=== PATIENT | male | born 1995 | race African-American/Black ===

== ENCOUNTER → 2020-01-28 14:10 | Outpatient (CLI) | payer OTHER, MEDICAID, SELFPAY ==
[2020-01-29 17:45] LABS: COVID19 Sendout Not Detected (Not Detect)
== END ==
PROVIDERS: Visit Provider Physician Assistant
DX: Z11.59 Encounter for screening for other viral diseases (principal)
CPT/HCPCS: 87635

== ENCOUNTER 2020-01-31 07:43 | Day surgery (SDC) | payer OTHER, MEDICAID, SELFPAY ==
--- NOTE | 2020-01-31 | PATH_ITS ---
[facility] Accession Number: [id number] . 01 Material submitted: . PART A: colon - CECUM AND ASCENDING COLON PART B: colon - TRANSVERSE COLON PART C: colon - TRANSVERSE COLON POLYP PART D: colon - SIGMOID AND DESCENDING COLON PART E: sigmoid colon - SIGMOID COLON POLYP PART F: rectum - RECTUM . 01 Clinical history: . A: CECUM AND ASCENDING COLON BIOPSY (HISTORY OF UC, DISEASE ACTIVITY ASSESSMENT) . 02 Diagnosis: A. Cecum and Ascending Colon, Biopsies: Colonic mucosa with no significant diagnostic abnormality. Negative for active inflammation, granulomas, dysplasia, and malignancy. . B. Transverse Colon: Colonic mucosa with no significant diagnostic abnormality. Negative for active inflammation, granulomas, dysplasia, and malignancy. . C. Transverse Colon Polyp: Portions of hyperplastic polyp x3. . D. Sigmoid and Descending Colon: Mild crypt architectural distortion and no activity identified. Negative for granulomas, dysplasia, and malignancy. . E. Sigmoid Colon Polyp: Hyperplastic polyp. . F. Rectum: Colonic mucosa with no significant diagnostic abnormality. Negative for active inflammation, granulomas, dysplasia, and malignancy. [facility] 02/01/2020 1743 Local . 02 Electronically signed: . Saira Swartz MD, Pathologist NPI- [id number] . 01 Gross description: . Part A: CECUM AND ASCENDING COLON: Received in formalin are 4 fragment(s) of fox, soft tissue measuring 0.2 x 0.2 x 0.2 cm to 0.4 x 0.4 x 0.2 cm submitted entirely in 1 cassette(s) Part B: TRANSVERSE COLON: Received in formalin are multiple fragment(s) of fox, soft tissue measuring 0.1 x 0.1 x 0.1 cm to 0.2 x 0.2 x 0.2 cm submitted entirely in 1 cassette(s) Part C: TRANSVERSE COLON POLYP: Received in formalin are 3 fragment(s) of fox, soft tissue measuring 0.1 x 0.1 x 0.1 cm to 0.2 x 0.2 x 0.2 cm submitted entirely in 1 cassette(s) Part D: SIGMOID AND DESCENDING COLON: Received in formalin are multiple fragment(s) of fox, soft tissue measuring 0.1 x 0.1 x 0.1 cm to 0.2 x 0.2 x 0.2 cm submitted entirely in 1 cassette(s) Part E: SIGMOID COLON POLYP: Received in formalin is 1 fragment(s) of fox, soft tissue measuring 0.1 x 0.1 x 0.1 cm submitted entirely in 1 cassette(s) Part F: RECTUM: Received in formalin are 3 fragment(s) of fox, soft tissue measuring 0.1 x 0.1 x 0.1 cm to 0.3 x 0.2 x 0.2 cm submitted entirely in 1 cassette(s) /MAX 02/01/2020 0159 Local . 02 Pathologist provided ICD-10: R11.2, I95.1, K21.9 . 02 CPT . 188806, 119655, 267991, 914436, 634503, 701402 Performed at: 01 [facility] [address] [place] [address], [place], [place] [id number] MD Piyush Mays MD Phone: [phone] Performed at: 02 [facility] [address] [place], [place] [id number] MD Andra Otoole MD Phone: [phone]
[2020-01-31 08:04] VITALS: BP 125/82; PULSE 97; RESP 15; TEMP 36.2; O2SAT 98; BMI 32.8
[2020-01-31] MEDS: LACTATED RINGERS 1,000 ML 200 ML IV (08:26)
--- NOTE | 2020-01-31 08:31 | PM.HP.1 ---
History of Present Illness History of Present Illness Chief complaint: COLONOSCOPY W/POSS BX Patient History Family & Social History Social History: household members family Tobacco & Substance use: Smoking Status Never smoker alcohol intake never Substance Use Type does not use Meds Home Medications and Allergies Home Medications Medication Instructions Recorded Confirmed Type atomoxetine 100 mg PO DAILY 01/31/20 01/31/20 History azathioprine 50 mg PO DAILY 01/31/20 01/31/20 History clonidine HCl 0.2 mg PO BEDTIME 01/31/20 01/31/20 History ferrous sulfate [iron] 325 mg PO DAILY 01/31/20 01/31/20 History infliximab [Remicade] 100 mg IV [id number] 01/31/20 01/31/20 History risperidone [Risperdal] 1 mg PO BEDTIME 01/31/20 01/31/20 History Allergies Allergy/AdvReac Type Severity Reaction Status Date / Time No Known Drug Allergies Allergy Verified 01/31/20 08:00 Review of Systems Review of Systems ROS: Yes All systems reviewed with the patient and are negative except as otherwise documented Exam Vital Signs (past 8 hours): - 01/31/20 08:04 Temperature 97.1 F L Pulse Rate 97 H Respiratory Rate 15 Blood Pressure 125/82 Pulse Oximetry 98 Oxygen Delivery Method Room Air Narrative Exam Narrative: Awake alert oriented x3, no acute distress, lungs clear auscultation, heart regular rate and rhythm, no lower extremity edema Assessment & Plan Assessment & Plan narrative: History of ulcerative colitis for colonoscopy COVID-19 COVID-19 status: Negative
--- NOTE | 2020-01-31 09:04 | PM.OP.ENDO ---
Operative Date/Time/Diagnoses Date of procedure: 01/31/20 Procedure & Clinicians Study performed: Colonoscopy with biopsy Moderate conscious sedation was administered by the endoscopy nurse and supervised by the endoscopist. The following parameters were monitored: Oxygen saturation, heart rate, blood pressure, and response to care. 7mg midazolam and 150mcg fentanyl given. Same procedure as scheduled: Yes Indications: Ulcerative colitis. Assessment of disease activity. Assess response to therapy. Procedure Notes Procedure in detail: Prior to the procedure, history and physical was performed, and patient medications and allergies were reviewed. Preprocedure nursing history and assessment was reviewed. Patient identification and proposed procedure were verified by the physician and nurse in the procedure room. The physical status of the patient was reassessed after the procedure. After informed consent was obtained including risks, benefits, and alternatives, the scope was passed under direct vision. Throughout the procedure, the patient's blood pressure, pulse, and oxygen saturations were monitored continuously. The colonoscope was introduced through the anus and advanced to the cecum as identified by the appendiceal orifice and ileocecal valve and into the terminal ileum. The patient tolerated the procedure well. Bowel prep was deemed adequate to detect polyps greater than 5 mm. Perianal and digital rectal examination were unremarkable. Retroflexion in the rectum revealed grade 1 internal hemorrhoids. The terminal ileum was normal appearing The cecum and proximal ascending colon were normal appearing. From the distal ascending colon to the distal sigmoid colon, areas of focal scarring, patchy mild erythema, and innumerable small to large pseudopolyps were noted. Two pseudopolyps in the transverse and sigmoid colon were characterized by marked erythema, mucosal hemorrhage, and measured 15-20 mm in diameter. Biopsies of these polyps were taken. The rectum was normal appearing aside from small areas of focal scarring. Biopsies were taken throughout the entire colon for assessment of disease activity. Impression: Normal appearing terminal ileum Normal appearing cecum and rectum, aside from mild scarring in the rectum indicative of prior inflammation Innumerable small to large pseudopolyps noted from the distal ascending colon to the distal sigmoid colon. The 2 largest pseudopolyps in the transverse and sigmoid colon, respectively, were characterized by marked erythema in focal mucosal hemorrhage. Biopsies were taken. Biopsies taken from throughout the entire colon Sedation minutes: 26 Specimen(s): none sent Complications: other (EBL minimal. No complications) Post-procedure Plan for aftercare: Follow-up pathology results Resume previous diet Resume home medications Return to GI clinic as previously recommended Patient has a contact number available for emergencies. The signs and symptoms of potential delayed complications were discussed with the patient. Return to normal activities tomorrow. Written discharge instructions were provided to the patient. Discharged home with escort
[2020-01-31 09:05] VITALS: BP 125/78; PULSE 112; RESP 17; TEMP 36.1; O2SAT 98
[2020-01-31] MEDS: fentaNYL 250 MCG/5 ML INJ IV (09:06)
[2020-01-31] MEDS: MIDAZOLAM 5 MG/5 ML VIAL IV (09:07)
[2020-01-31 09:10] VITALS: BP 127/82; PULSE 94; RESP 20; O2SAT 98
[2020-01-31 09:19] VITALS: BP 130/92; PULSE 112; RESP 12; O2SAT 98
[2020-01-31 10:09] VITALS: BP 130/77; PULSE 112; RESP 12; TEMP 36.9; O2SAT 98
== END 2020-01-31 10:09 | disposition home or self-care (01) ==
PROVIDERS: PCP Nurse Practitioner Gerontology; Referring Provider Nurse Practitioner Gerontology; Visit Provider Internal Medicine
PROC: 0DJD8ZZ Inspection of Lower Intestinal Tract, Via Natural or Artificial Opening Endoscopic (ICD-10-PCS; CPT 45378; principal; 2020-01-31 08:30)
DX: K63.5 Polyp of colon (principal); F84.0 Autistic disorder; K64.0 First degree hemorrhoids
CPT/HCPCS: 45380; J2250; J3010

== ENCOUNTER → 2023-04-06 14:18 | Outpatient (CLI) | payer OTHER, MEDICAID, SELFPAY ==
--- NOTE | 2023-04-06 14:19 | DI.ECHO.S_ITS ---
[place] [facility]---------+ [facility] +---------+ : : [address] : : : : [id number] : : : : Phone: [phone]+ Echocardiogram Report + + :Name: ROSIE TOSCANO Study Date: 04/06/2023 Height: 72 in : :[facility] ReadingLocation: Weight: 265 lb : : Gender: Male BSA: 2.4 m2 : :: 1995 Age: 28 yrs BP: 137/65 mmHg: :Reason For Study: Chest Pain : :Ordering Physician: ANIVAL, : :GARRISON Performed By: Wanda Cabrera : :Referring: GARRISON FLORIAN : + + Interpretation Summary The left ventricle is borderline dilated. Left ventricular systolic function is low normal. The ejection fraction is estimated to be 50-55%. Diastolic parameters suggest probable normal left ventricular diastolic function and normal filling pressures. The right ventricle is normal in size and function. The right ventricular systolic pressure is estimated to be at least 18 mmHg based on an estimated right atrial pressure of 3 mm Hg. The left atrial size is normal. The aortic valve is bicuspid. There is probable moderate aortic regurgitation. Consider repeating a limited echo to re-evaluate and calculate ERO. Recommend measure semiquantiative and quantative parameters for AR. The aortic root is borderline dilated. The ascending aorta is mildly enlarged. Recommend cardiology consult as well. Procedure: A two-dimensional transthoracic echocardiogram with color flow and Doppler was performed. The study quality was technically adequate. There is no prior echocardiogram noted for this patient. The patient was in normal sinus rhythm during the exam. Left Ventricle: The left ventricle is borderline dilated. Left ventricular systolic function is low normal. The ejection fraction is estimated to be 50- 55%. There are no focal wall motion abnormalities. Diastolic parameters suggest probable normal left ventricular diastolic function and normal filling pressures. Right Ventricle: The right ventricle is normal in size and function. Atria: The left atrial size is normal. Right atrial size is normal. There is no Doppler evidence for an interatrial shunt. Mitral Valve: The mitral valve is normal. There is no mitral valve stenosis. There is trace mitral regurgitation. Aortic Valve: The aortic valve is bicuspid. There is no aortic valve stenosis. There is moderate aortic regurgitation. There is borderline holodiastolic flow reversal in the descending thoracic aorta. Tricuspid Valve: The tricuspid valve is normal. There is no tricuspid stenosis. There is mild tricuspid regurgitation. The right ventricular systolic pressure is estimated to be at least 18 mmHg based on an estimated right atrial pressure of 3 mm Hg. Pulmonic Valve: The pulmonic valve leaflets are thin and pliable; valve motion is normal. There is no pulmonic valvular stenosis. There is trace pulmonic regurgitation. Great Vessels: The aortic root is borderline dilated. The ascending aorta is mildly enlarged. The pulmonary artery is normal size. The IVC is of normal diameter and collapses greater than 50% with a sniff. This suggests a low right atrial pressure of 3 mm Hg. Pericardium/ Pleura There is no pericardial effusion. MMode/2D Measurements & Calculations LVIDd: 5.8 cm LVOT diam: 2.2 cm LVIDs: 4.3 cm Ao root diam: 3.9 cm FS: 25.9 % asc Aorta Diam: 3.7 cm IVSd: 1.0 cm LVPWd: 1.0 cm LV roper. diameter/BSA (cm/m^2): 2.4 LV sys. diameter/BSA (cm/m^2): 1.8 LA A2 area: 17.1 cm2 RA long axis: 5.3 cm LA A4 area: 19.6 cm2 RA area: 12.1 cm2 LA length (vol): 5.0 cm RA vol: 23.6 ml LA vol: 57.2 ml RA : 9.8 ml/m2 LA vol index: 23.8 ml/m2 RVD1 (basal): 2.9 cm LVLs ap4: 6.7 cm LVLd ap2: 8.5 cm TAPSE_phl: 2.1 cm LVLs ap2: 7.4 cm Doppler Measurements & Calculations Ao V2 max: 168.5 cm/sec LVOT Max Timoteo: 111.0 cm/sec Ao V2 mean: 112.5 cm/sec LV V1 max P.9 mmHg Ao max P.0 mmHg LV V1 VTI: 22.3 cm Ao mean P.0 mmHg AROLDO(I,D): 2.5 cm2 Ao V2 VTI: 34.3 cm AROLDO(V,D): 2.5 cm2 sev ratio: 0.65 AROLDO indexed to BSA (cm^2/m^2): 1.0 MV E max timoteo: 88.8 cm/sec TR max timoteo: 197.3 cm/sec MV A max timoteo: 67.9 cm/sec TR max P.6 mmHg MV E/A: 1.3 PA V2 max: 106.0 cm/sec Med Peak E' Timoteo: 9.9 cm/sec PA V2 mean: 74.2 cm/sec E/E' med: 8.9 PA mean P.0 mmHg Lat Peak E' Timoteo: 14.4 cm/sec PA pr(Accel): 17.3 mmHg E/E' lat: 6.2 E/e' average: 7.6 MV dec time: 0.18 sec SV(LVOT): 84.8 ml AV VR_phl: 0.66 AROLDO(VTI)/BSA_phl: 1.0 Reading Physician:05:17 PM
== END ==
PROVIDERS: PCP Internal Medicine; Referring Provider Physician Assistant Medical; Visit Provider Physician Assistant Medical
DX: Q23.1 Congenital insufficiency of aortic valve (principal); I77.89 Other specified disorders of arteries and arterioles; R07.9 Chest pain, unspecified
CPT/HCPCS: 93306